=== PATIENT | male | born 1950 | race Caucasian/White ===

== ENCOUNTER 2016-11-06 09:32 | Emergency (ER) | payer OTHER ==
--- NOTE | 2016-11-06 10:20 | ED CLINICAL REPORT ---
Clinical Report - Physicians/Mid Levels [facility] [address] [place] [address] 11/06/2016 9:36 Patient: RADHA ROTHMAN Time Seen: 09:43. Arrived- By private vehicle. Historian- patient. HISTORY OF PRESENT ILLNESS Chief Complaint: CHEST PAIN. This started last night. It was abrupt in onset and has been intermittent. Onset during rest and moderate exertion. At its maximum, severity described as moderate. When seen in the E.D., it was gone. It is described as pressure and aching and it is described as located in the central chest area and radiating to the right arm. No nausea. He has had difficulty breathing and has experienced diaphoresis. (the patient had a small amount of pain last night that resolved spontaneously. He woke this morning and had the pain again.). REVIEW OF SYSTEMS No chills, fever, sweats, calf pain or pedal edema. No palpitations, abdominal pain, constipation, diarrhea or nausea. No vomiting or urinary problems. All systems otherwise negative, except as recorded above. PAST HISTORY Problems: Hyperlipidemia. Arthritis. Hypertension. Additional Surgeries: no known surgeries. Medications: Mvi. Aspirin Oral (Tablet 81 mg) 1 tablet, QD. Pravastatin Sodium Oral (Tablet 40 mg) 1 tablet, daily. Atenolol Oral (Tablet 25 mg) 1 tablet, daily. Lisinopril-Hydrochlorothiazide Oral (Tablet 20-12.5 mg) 1 tablet, QD. Isosorbide Mononitrate Oral 30mg, QD. Nitroglycerin Translingual. SOCIAL HISTORY Smoker- current status unknown. Occasional alcohol use. FAMILY HISTORY Premature onset heart disease in first-degree relative (father), grandparent. ADDITIONAL NOTES The nursing notes have been reviewed. PHYSICAL EXAM Vital Signs: 11/06/2016 09:38 BP: 134/79. HR: 66. RR: 16. O2 saturation: 97%. Temp: 97.7 F. Pain level now: 4/10. Have been reviewed. Appearance: Alert. Eyes: Pupils equal, round and reactive to light. ENT: Pharynx normal. Neck: Normal inspection. Neck supple. CVS: Normal heart rate and rhythm. Heart sounds normal. Respiratory: No respiratory distress. Breath sounds normal. Abdomen: Soft and nontender. Bowel sounds normal. No organomegaly. No mass. Back: Normal external inspection. Skin: Skin warm and dry. Normal skin color. Normal skin turgor. Extremities: Extremities exhibit normal ROM. No calf tenderness. No lower extremity edema. LABS, X-RAYS, AND EKG EKG: ST elevation in lead II, III and aVF- consistent with inferior infarction. EKG #2: Q waves in lead II, III and aVF. ST elevation in lead II, III and aVF- consistent with infarction. right-sided leads. Chest X-ray: Mild vascular congestion present. The X-rays were independently viewed by me. Laboratory Tests: CBC w Diff: (GINO: 11/06/2016 09:55) ( [employer] 11/06/2016 10:12) IP Test Result Flag Units (Reference) RED BLOOD COUNT 5.45 M/uL (4.50-5.90) HEMOGLOBIN 16.5 gm/dL (13.5-17.5) HEMATOCRIT 49.1 % (41.0-53.0) MEAN CELL VOLUME 90 fL (80-100) MEAN CORPUSCULAR HGB 30 pg (26-34) MEAN CORPUSCULAR HGB CONC 34 g/dL (31-37) RED CELL DISTRIBUTION WIDTH 12.5 % (11.6-14.8) NEUTROPHIL % 73.8 % (50-75) LYMPH % 18.0 L % (25-40) MONO % 5.0 % (3-14) EOSINOPHIL % 1.6 % (0-4) BASOPHIL % 1.6 % (0-2) PT with INR: (GINO: 11/06/2016 09:55) ( [facility] 11/06/2016 10:24) Final results Test Result Flag Units (Reference) INR 1.1 (0.8-1.2) Low Intensity Therapy: INR 1.5-2.0 PT range 18.5-23.1Mod.Intensity Therapy: INR 2.0-3.0 PT range 23.1-31.5High Intensity Therapy: INR 2.5-3.5 PT range 27.4-35.5High Intensity Therapy 2: INR 3.0-4.0 PT range 31.5-39.3 APTT 26 SECONDS (24-34) D-DIMER QUANTITATIVE < 0.27 L ug/mLFEU (0.27-0.52) The primary value of this quantitative assay relates toits negative predictive value (i.e. exclusion) of pulmonaryembolism/deep vein thrombosis/DIC.Elevated levels of d-dimer may also occur with:, age, cancer, inflammation, liver disease,post-op, infection, hematoma, coronary disease, peripheralarteriopathy, bleeding disorders and thrombolytic treatment.Results should be correlated with other clinical andradiological data.Testing Methodology: Latex Immunoassay BNP: (GINO: 11/06/2016 09:55) ( MsgRcvd 11/06/2016 10:25) Final results Test Result Flag Units (Reference) B-TYPE NATRIURETIC PEPTIDE 53.0 pg/ml (5-100) CMP: (GINO: 11/06/2016 09:55) ( MsgRcvd 11/06/2016 10:24) Final results Test Result Flag Units (Reference) GLUCOSE 172 H mg/dL (70-110) BUN 19 H mg/dL (7-18) CREATININE 1.2 mg/dL (0.6-1.3) Estimated GFR >60 mL/min Estimated GFR- >60 mL/min Note: Persistent reduction over 3 months in eGFR<60 mL/min/1.73 m2 defines CKD. Patients with eGFR values>=60 mL/min/1.73 m2 may also have CKD if evidence ofpersistent proteinuria. Additional information may be foundat www.kidney.org. SODIUM 139 mmol/L (136-145) POTASSIUM 4.1 mmol/L (3.5-5.1) CHLORIDE 103 mmol/L (98-107) CARBON DIOXIDE 25 mmol/L (21-32) CALCIUM 9.0 mg/dL (8.5-10.1) TOTAL PROTEIN 7.1 g/dL (6.4-8.2) ALBUMIN 3.7 g/dL (3.3-5.0) BILIRUBIN, TOTAL 1.0 mg/dL (0.0-1.0) ALKALINE PHOSPHATASE 63 U/L (46-116) AST (SGOT) 22 U/L (15-37) ALT (SGPT) 26 U/L (12-78) LIPASE 86 U/L (73-393) AMYLASE 45 U/L (25-115) CPK 123 U/L (24-260) TROPONIN I 0.13 ng/mL (0.00-1.5) TROPONIN REFERENCE RANGE:<0.1 NEGATIVE0.1-1.5 INDETERMINANT>1.5 POSITIVE . PROGRESS AND PROCEDURES Course of Care: Patient is stable. Discussed case with health care provider (Nicolas GARIBAY doctor at [facility]). Reviewed test results and need for additional work-up. Agreed upon treatment plan. Patient/family counseled. Old medical records ordered. Old records unavailable. Disposition: Benefits, risks and alternatives to transfer explained to patient and family. Transferred to [facility]. CLINICAL IMPRESSION Acute inferior myocardial infarction with ST elevation (STEMI). Aspirin administered in ED. (Electronically signed by Gian Sprague MD 11/06/2016 10:30)
--- NOTE | 2016-11-06 10:20 | ED ORDER SUMMARY ---
..... Patient: RADHA ROTHMAN OrderSheet [facility] VisitID: [id number] [address] [place] [address] 66y, M Registration Date/Time: 11/06/2016 ORDER SHEET Weight: 80 kg Allergies: No Known Drug Allergy GENERAL ORDERS: Chest 1V Urgent (11/06/2016 Tyrone SPAULDING) (Ack 9:47 CONSTANCEoerner) (10:01 GMarshall R.N.) Agility Instructor (Continuous) (11/06/2016 Tyrone SPAULDING) (9:54 KHoerner) CBC w Diff Urgent (11/06/2016 Tyrone SPAULDING) (Ack 9:47 KHoerner) (10:00 JSimbeck R.N.) CMP Urgent (11/06/2016 Tyrone SPAULDING) (Ack 9:47 CONSTANCEoehughner) (10:00 JSimbeck R.N.) UA-Culture if indicated Urgent (11/06/2016 Tyrone SPAULDING) (Ack 9:47 CONSTANCEoerner) (Cancelled: Patient Left11:30 JSimbeck R.N.) PT with INR Urgent (11/06/2016 Tyrone SPAULDING) (Ack 9:47 CONSTANCEoerner) (10:00 JSimbeck R.N.) PTT Urgent (11/06/2016 Tyrone SPAULDING) (Ack 9:47 CONSTANCEoerner) (10:00 JSimbeck R.N.) D-Dimer Urgent (11/06/2016 Tyrone SPAULDING) (Ack 9:47 CONSTANCEoermary) (10:00 JSimbeck R.N.) Amylase Urgent (11/06/2016 Tyrone SPAULDING) (Ack 9:47 KHoerner) (10:00 JSimbeck R.N.) Lipase Urgent (11/06/2016 Tyrone SPAULDING) (Ack 9:47 CONSTANCEoehughner) (10:00 JSimbeck R.N.) CPK Urgent (11/06/2016 Tyrone SPAULDING) (Ack 9:47 KHoerner) (10:00 JSimbeck R.N.) Troponin-I Urgent (:11/06/2016 Tyrone SPAULDING) (Ack 9:47 KHoerner) (10:00 JSimbeck R.N.) BNP Urgent (:11/06/2016 Tyrone SPAULDING) (Ack 9:47 KHoerner) (10:00 JSimbeck R.N.) Oxygen (2 L/min) (NC) (:11/06/2016 Tyrone SPAULDING) (9:54 KHoerner) Pulse oximeter (:11/06/2016 Tyrone SPAULDING) (9:54 KHoerner) EKG - ER Stat (:11/06/2016 Tyrone SPAULDING) (9:54 KHoerner) MEDICATION ORDERS: Aspirin PO 325 mg (NOW) (:11/06/2016 Tyrone SPAULDING) (9:59 JSimbeck R.N.) Plavix PO 600 mg (HIGH ALERT MEDICATION, NOW) (10:11/06/2016 Tyrone SPAULDING) (10:21 JSimbeck R.N.) IV FLUIDS: IV Saline Lock (11/06/2016 Tyrone SPAULDING) (10:00 JSimbeck R.N.) Heparin IV : initial bolus 5,000 units, then 18 units/kg/hr for 4h (NOW); Urgent (10:02 11/06/2016 Tyrone SPAULDING) (10:18 JSimbeck R.N.) IV NS : initial bolus none -, then 100 mL/hr for X4 (NOW) (11:26 11/06/2016 JSimbeck R.N. verbal order read back to Tyrone SPAULDING) (11:27 Edmundoeck R.N.) ORDER SHEET NOTES: [Electronically signed by Gian Sprague MD (10:29 11/06/2016)] [Electronically signed by Johnnie Pacheco R.N. (19:17 11/06/2016)] [Electronically locked/signed by Johnnie Pacheco R.N. (19:11/06/2016)]
--- NOTE | 2016-11-06 10:20 | ED CLINICAL REPORT ---
Clinical Report - Physicians/Mid Levels [facility] [address] [place] [address] 11/06/2016 9:36 Patient: RADHA ROTHMAN Time Seen: 09:43. Arrived- By private vehicle. Historian- patient. HISTORY OF PRESENT ILLNESS Chief Complaint: CHEST PAIN. This started last night. It was abrupt in onset and has been intermittent. Onset during rest and moderate exertion. At its maximum, severity described as moderate. When seen in the E.D., it was gone. It is described as pressure and aching and it is described as located in the central chest area and radiating to the right arm. No nausea. He has had difficulty breathing and has experienced diaphoresis. (the patient had a small amount of pain last night that resolved spontaneously. He woke this morning and had the pain again.). REVIEW OF SYSTEMS No chills, fever, sweats, calf pain or pedal edema. No palpitations, abdominal pain, constipation, diarrhea or nausea. No vomiting or urinary problems. All systems otherwise negative, except as recorded above. PAST HISTORY Problems: Hyperlipidemia. Arthritis. Hypertension. Additional Surgeries: no known surgeries. Medications: Mvi. Aspirin Oral (Tablet 81 mg) 1 tablet, QD. Pravastatin Sodium Oral (Tablet 40 mg) 1 tablet, daily. Atenolol Oral (Tablet 25 mg) 1 tablet, daily. Lisinopril-Hydrochlorothiazide Oral (Tablet 20-12.5 mg) 1 tablet, QD. Isosorbide Mononitrate Oral 30mg, QD. Nitroglycerin Translingual. SOCIAL HISTORY Smoker- current status unknown. Occasional alcohol use. FAMILY HISTORY Premature onset heart disease in first-degree relative (father), grandparent. ADDITIONAL NOTES The nursing notes have been reviewed. PHYSICAL EXAM Vital Signs: 11/06/2016 09:38 BP: 134/79. HR: 66. RR: 16. O2 saturation: 97%. Temp: 97.7 F. Pain level now: 4/10. Have been reviewed. Appearance: Alert. Eyes: Pupils equal, round and reactive to light. ENT: Pharynx normal. Neck: Normal inspection. Neck supple. CVS: Normal heart rate and rhythm. Heart sounds normal. Respiratory: No respiratory distress. Breath sounds normal. Abdomen: Soft and nontender. Bowel sounds normal. No organomegaly. No mass. Back: Normal external inspection. Skin: Skin warm and dry. Normal skin color. Normal skin turgor. Extremities: Extremities exhibit normal ROM. No calf tenderness. No lower extremity edema. LABS, X-RAYS, AND EKG EKG: ST elevation in lead II, III and aVF- consistent with inferior infarction. EKG #2: Q waves in lead II, III and aVF. ST elevation in lead II, III and aVF- consistent with infarction. right-sided leads. Chest X-ray: Mild vascular congestion present. The X-rays were independently viewed by me. Laboratory Tests: CBC w Diff: (GINO: 11/06/2016 09:55) ( [facility] 11/06/2016 10:12) IP Test Result Flag Units (Reference) RED BLOOD COUNT 5.45 M/uL (4.50-5.90) HEMOGLOBIN 16.5 gm/dL (13.5-17.5) HEMATOCRIT 49.1 % (41.0-53.0) MEAN CELL VOLUME 90 fL (80-100) MEAN CORPUSCULAR HGB 30 pg (26-34) MEAN CORPUSCULAR HGB CONC 34 g/dL (31-37) RED CELL DISTRIBUTION WIDTH 12.5 % (11.6-14.8) NEUTROPHIL % 73.8 % (50-75) LYMPH % 18.0 L % (25-40) MONO % 5.0 % (3-14) EOSINOPHIL % 1.6 % (0-4) BASOPHIL % 1.6 % (0-2) PT with INR: (GINO: 11/06/2016 09:55) ( [facility] 11/06/2016 10:24) Final results Test Result Flag Units (Reference) INR 1.1 (0.8-1.2) Low Intensity Therapy: INR 1.5-2.0 PT range 18.5-23.1Mod.Intensity Therapy: INR 2.0-3.0 PT range 23.1-31.5High Intensity Therapy: INR 2.5-3.5 PT range 27.4-35.5High Intensity Therapy 2: INR 3.0-4.0 PT range 31.5-39.3 APTT 26 SECONDS (24-34) D-DIMER QUANTITATIVE < 0.27 L ug/mLFEU (0.27-0.52) The primary value of this quantitative assay relates toits negative predictive value (i.e. exclusion) of pulmonaryembolism/deep vein thrombosis/DIC.Elevated levels of d-dimer may also occur with:, age, cancer, inflammation, liver disease,post-op, infection, hematoma, coronary disease, peripheralarteriopathy, bleeding disorders and thrombolytic treatment.Results should be correlated with other clinical andradiological data.Testing Methodology: Latex Immunoassay BNP: (GION: 11/06/2016 09:55) ( MsgRcvd 11/06/2016 10:25) Final results Test Result Flag Units (Reference) B-TYPE NATRIURETIC PEPTIDE 53.0 pg/ml (5-100) CMP: (GINO: 11/06/2016 09:55) ( MsgRcvd 11/06/2016 10:24) Final results Test Result Flag Units (Reference) GLUCOSE 172 H mg/dL (70-110) BUN 19 H mg/dL (7-18) CREATININE 1.2 mg/dL (0.6-1.3) Estimated GFR >60 mL/min Estimated GFR- >60 mL/min Note: Persistent reduction over 3 months in eGFR<60 mL/min/1.73 m2 defines CKD. Patients with eGFR values>=60 mL/min/1.73 m2 may also have CKD if evidence ofpersistent proteinuria. Additional information may be foundat www.kidney.org. SODIUM 139 mmol/L (136-145) POTASSIUM 4.1 mmol/L (3.5-5.1) CHLORIDE 103 mmol/L (98-107) CARBON DIOXIDE 25 mmol/L (21-32) CALCIUM 9.0 mg/dL (8.5-10.1) TOTAL PROTEIN 7.1 g/dL (6.4-8.2) ALBUMIN 3.7 g/dL (3.3-5.0) BILIRUBIN, TOTAL 1.0 mg/dL (0.0-1.0) ALKALINE PHOSPHATASE 63 U/L (46-116) AST (SGOT) 22 U/L (15-37) ALT (SGPT) 26 U/L (12-78) LIPASE 86 U/L (73-393) AMYLASE 45 U/L (25-115) CPK 123 U/L (24-260) TROPONIN I 0.13 ng/mL (0.00-1.5) TROPONIN REFERENCE RANGE:<0.1 NEGATIVE0.1-1.5 INDETERMINANT>1.5 POSITIVE . PROGRESS AND PROCEDURES Course of Care: Patient is stable. Discussed case with health care provider (Nicolas GARIBAY doctor at [facility]). Reviewed test results and need for additional work-up. Agreed upon treatment plan. Patient/family counseled. Old medical records ordered. Old records unavailable. Disposition: Benefits, risks and alternatives to transfer explained to patient and family. Transferred to [facility]. CLINICAL IMPRESSION Acute inferior myocardial infarction with ST elevation (STEMI). Aspirin administered in ED. (Electronically signed by Gina Sprague MD 11/06/2016 10:30)
--- NOTE | 2016-11-06 10:20 | ED NURSING NOTES ---
Clinical Report - Nurses [facility] [address] [place] [address] 11/06/2016 9:36 Patient: RADHA ROTHMAN TRIAGE Triage time 09:38. Acuity: LEVEL 3. Chief Complaint: CHEST PAIN and (Dull pressure 4/10, substernal and radiates into the left arm. Pt woke with this CP, relieved for a few minutes after taking NTG x3 SL. Pt was diaphoretic. CP is not reproducible.). SEPSIS SCREEN: Sepsis Screen. Negative (no infection suspected/documented). --09:50 Johnnie Pacheco R.N. 09:38 11/06/16. BP: 134/79 (regular adult cuff) taken on the left arm, while lying. HR: 66. RR: 16. O2 saturation: 97% on room air. Temp: 97.7 F. Pain level now: 4/10. --09:50 Johnnie Pacheco R.N. Acuity: LEVEL 2. late entry -09:50. --10:55 Johnnie Pacheco R.N. Weight: 80 kg. Height/Length: 71 inches. BMI: 24.6. --09:38 Johnnie Pacheco R.N. Medications Nitroglycerin Translingual. --09:43 Johnnie Pacheco R.N. Isosorbide Mononitrate Oral 30mg, QD. --09:44 Johnnie Pacheco R.N. Lisinopril-Hydrochlorothiazide Oral (Tablet 20-12.5 mg) 1 tablet, QD. --09:46 Johnnie Pacheco R.N. Atenolol Oral (Tablet 25 mg) 1 tablet, daily. --09:46 Johnnie Pacheco R.N. Pravastatin Sodium Oral (Tablet 40 mg) 1 tablet, daily. --09:46 Johnnie Pacheco R.N. Aspirin Oral (Tablet 81 mg) 1 tablet, QD. --09:47 Johnnie Pacheco R.N. Mvi. --09:47 Johnnie Pacheco R.N. Allergies No Known Drug Allergy. --12:31 Johnnie Pacheco R.N. History Arrived by private vehicle. Historian: patient. Accompanied by family. This started today. Treatment DAY CARE WORKER: ( NTG x3). SOCIAL HX: Former smoker, end date 1976 (cigarette). Occasional alcohol use. ABUSE ASSESSMENT: No report of abuse. --09:50 Johnnie Pacheco R.N. PROBLEMS: Arthritis. Hypertension. --09:48 Johnnie Pacheco R.N. ADDITIONAL SURGERIES: no known surgeries. Assessment The patient states feels the same. GENERAL / NEURO / PSYCH: Alert. Oriented X 4. Appears in no acute distress. Patient appears calm and cooperative. RESPIRATORY: Respirations not labored. Chest tender. Upper and mid- sternal tenderness (radiates to the left arm). Breath sounds within normal limits. CVS: Normal sinus rhythm noted. Cardiac rhythm: normal sinus rhythm; (STEMI). Pulses: (normal). Capillary refill less than 2 seconds. GI / : Abdomen soft and nontender. SKIN: Mucous membranes are pink. Skin is warm and dry. --10:55 Johnnie Pacheco R.N. Interventions ID band on patient. To treatment room. --09:50 Johnnie Pacheco R.N. NURSING PROGRESS NOTES EKG time: (50). EKG was ordered, performed by a tech and shown to the ED physician. --09:59 Leandro Basilio ER Tech1 09:59 11/06/2016 Aspirin PO Tablets 243 mg given. Allergies verified and confirmed 5 rights. --09:59 Johnnie Pacheco R.N. EKG time: (57). EKG was ordered, performed by a tech and shown to the ED physician. ( 2 EKGs done, one on left side, one on right side.). --10:00 Leandro Basilio ER Tech1 09:55 11/06/2016 Site #1 started via IV in the right antecubital space with an 18g angiocath, with aseptic technique and good blood return; one attempt. Blood drawn: rainbow set. Labeled in the presence of the patient and sent to the lab. Saline lock flushed with 10 mL saline. --10:00 Johnnie Pacheco R.N. 10:06 11/06/2016 Heparin IVP 5000 unit given over 1 minute(s) via site #1. Allergies verified and confirmed 5 rights. IV patency established. IV site checked: no pain, redness, or swelling. IV flushed thoroughly pre- and post-medication administration. IVP given by RN (Drip started @1458 units/hr via pump). --10:18 Johnnie Pacheco R.N. 10:08 11/06/2016 Plavix (Clopidogrel Bisulfate) PO Tablets 600 mg given. Allergies verified and confirmed 5 rights. --10:21 Johnnie Pacheco R.N. 10:12 11/06/2016 Started bag #1 1000 mL IV Fluids IV NS (Saline); at 100 mL/hr over 4 hour(s) via site #1. Allergies verified and confirmed 5 rights. IV patency established. IV site checked: no pain, redness, or swelling. IV flushed thoroughly pre- and post-medication administration. --11:27 Johnnie aPcheco R.N. 10:15 11/06/2016 IV Fluids IV NS Continued: upon transfer at the rate of 100 mL/hr. 980 mL remaining bag #1. IV patency established. IV site checked: no pain, redness, or swelling. IV flushed thoroughly. --12:32 Johnnie Pacheco R.N. DISPOSITION / DISCHARGE 10:11/06/2016 Site #2 started via IV in the left antecubital space with an 20g angiocath, with aseptic technique and good blood return; one attempt. Saline lock flushed with 10 mL saline (by ROLAND Cotton). --11:24 Johnnie Pacheco R.N. 10:11/06/2016 Site #[address] upon transfer; patent, no pain and no signs of infection or infiltration. Flushed with 10 mL saline; flushes easily. --11:25 Johnnie Pacheco R.N. 10:15 11/06/2016 Site #[address] upon transfer; patent, no pain and no signs of infection or infiltration. Flushed with 10 mL saline; flushes easily. --11:25 Johnnie Pacheco R.N. late entry -1015. Departure time: 1015. Cardiac rhythm: normal sinus rhythm; (STEMI). Condition at departure: unchanged. Transferred to [facility]. Summary of care provided to EMS via paper (Grain Drier Operator). Transported via ambulance by EMS with monitor, defibrillator, IV, O2, emergency medications and ambu bag ([facility]). --11:30 Johnnie Pacheco R.N. 10:00 11/06/16. BP: 136/80. HR: 66. RR: 16. O2 saturation: 98% on nasal cannula at 2 liters/minute. Temp: 97.7 F. Pain level now: 09/19. --11:30 Johnnie Pacehco R.N. late entry -10:25. Report was given to a nurse via a phone call. Report included patient's care, treatment, medications, reviewed medication reconcilliation, and condition (including any recent changes or anticipated changes). All questions were answered. Report was acknowledged. ([facility] Grain Drier Operator). ( Heparin drip was stopped and clamped for transport because the medics cannot transport a Heparin drip.). --12:35 Johnnie Pacheco R.N. Locked/Released at 11/06/2016 19:17 by Johnnie Pacheco R.N.
--- NOTE | 2016-11-06 10:20 | ED NURSING NOTES ---
Clinical Report - Nurses [facility] [address] [place] [address] 11/06/2016 9:36 Patient: RADHA ROTHMAN TRIAGE Triage time 09:38. Acuity: LEVEL 3. Chief Complaint: CHEST PAIN and (Dull pressure 4/10, substernal and radiates into the left arm. Pt woke with this CP, relieved for a few minutes after taking NTG x3 SL. Pt was diaphoretic. CP is not reproducible.). SEPSIS SCREEN: Sepsis Screen. Negative (no infection suspected/documented). --09:50 Johnnie Pacheco R.N. 09:38 11/06/16. BP: 134/79 (regular adult cuff) taken on the left arm, while lying. HR: 66. RR: 16. O2 saturation: 97% on room air. Temp: 97.7 F. Pain level now: 4/10. --09:50 Johnnie Pacheco R.N. Acuity: LEVEL 2. late entry -09:50. --10:55 Johnnie Pacheco R.N. Weight: 80 kg. Height/Length: 71 inches. BMI: 24.6. --09:38 Johnnie Pacheco R.N. Medications Nitroglycerin Translingual. --09:43 Johnnie Pacheco R.N. Isosorbide Mononitrate Oral 30mg, QD. --09:44 Johnnie Pacheco R.N. Lisinopril-Hydrochlorothiazide Oral (Tablet 20-12.5 mg) 1 tablet, QD. --09:46 Johnnie Pacheco R.N. Atenolol Oral (Tablet 25 mg) 1 tablet, daily. --09:46 Johnnie Pacheco R.N. Pravastatin Sodium Oral (Tablet 40 mg) 1 tablet, daily. --09:46 Johnnie Pacheco R.N. Aspirin Oral (Tablet 81 mg) 1 tablet, QD. --09:47 Johnnie Pacheco R.N. Mvi. --09:47 Johnnie Pacheco R.N. Allergies No Known Drug Allergy. --12:31 Johnnie Pacheco R.N. History Arrived by private vehicle. Historian: patient. Accompanied by family. This started today. Treatment PATIENT CARE COORDINATOR: ( NTG x3). SOCIAL HX: Former smoker, end date 1976 (cigarette). Occasional alcohol use. ABUSE ASSESSMENT: No report of abuse. --09:50 Johnnie Pacheco R.N. PROBLEMS: Arthritis. Hypertension. --09:48 Johnnie Pacheco R.N. ADDITIONAL SURGERIES: no known surgeries. Assessment The patient states feels the same. GENERAL / NEURO / PSYCH: Alert. Oriented X 4. Appears in no acute distress. Patient appears calm and cooperative. RESPIRATORY: Respirations not labored. Chest tender. Upper and mid- sternal tenderness (radiates to the left arm). Breath sounds within normal limits. CVS: Normal sinus rhythm noted. Cardiac rhythm: normal sinus rhythm; (STEMI). Pulses: (normal). Capillary refill less than 2 seconds. GI / : Abdomen soft and nontender. SKIN: Mucous membranes are pink. Skin is warm and dry. --10:55 Johnnie Pacheco R.N. Interventions ID band on patient. To treatment room. --09:50 Johnnie Pacheco R.N. NURSING PROGRESS NOTES EKG time: (50). EKG was ordered, performed by a tech and shown to the ED physician. --09:59 Leandro Basilio ER Tech1 09:59 11/06/2016 Aspirin PO Tablets 243 mg given. Allergies verified and confirmed 5 rights. --09:59 Johnnie Pacheco R.N. EKG time: (57). EKG was ordered, performed by a tech and shown to the ED physician. ( 2 EKGs done, one on left side, one on right side.). --10:00 Leandro Basilio ER Tech1 09:55 11/06/2016 Site #1 started via IV in the right antecubital space with an 18g angiocath, with aseptic technique and good blood return; one attempt. Blood drawn: rainbow set. Labeled in the presence of the patient and sent to the lab. Saline lock flushed with 10 mL saline. --10:00 Johnnie Pacheco R.N. 10:06 11/06/2016 Heparin IVP 5000 unit given over 1 minute(s) via site #1. Allergies verified and confirmed 5 rights. IV patency established. IV site checked: no pain, redness, or swelling. IV flushed thoroughly pre- and post-medication administration. IVP given by RN (Drip started @1458 units/hr via pump). --10:18 Johnnie Pacheco R.N. 10:08 11/06/2016 Plavix (Clopidogrel Bisulfate) PO Tablets 600 mg given. Allergies verified and confirmed 5 rights. --10:21 Johnnie Pacheco R.N. 10:12 11/06/2016 Started bag #1 1000 mL IV Fluids IV NS (Saline); at 100 mL/hr over 4 hour(s) via site #1. Allergies verified and confirmed 5 rights. IV patency established. IV site checked: no pain, redness, or swelling. IV flushed thoroughly pre- and post-medication administration. --11:27 Johnnie Pacheco R.N. 10:15 11/06/2016 IV Fluids IV NS Continued: upon transfer at the rate of 100 mL/hr. 980 mL remaining bag #1. IV patency established. IV site checked: no pain, redness, or swelling. IV flushed thoroughly. --12:32 Johnnie Pacheco R.N. DISPOSITION / DISCHARGE 10:11/06/2016 Site #2 started via IV in the left antecubital space with an 20g angiocath, with aseptic technique and good blood return; one attempt. Saline lock flushed with 10 mL saline (by ROLAND Cotton). --11:24 Johnnie Pacheco R.N. 10:11/06/2016 Site #[address] upon transfer; patent, no pain and no signs of infection or infiltration. Flushed with 10 mL saline; flushes easily. --11:25 Johnnie Pacheco R.N. 10:15 11/06/2016 Site #[address] upon transfer; patent, no pain and no signs of infection or infiltration. Flushed with 10 mL saline; flushes easily. --11:25 Johnnie Pacheco R.N. late entry -1015. Departure time: 1015. Cardiac rhythm: normal sinus rhythm; (STEMI). Condition at departure: unchanged. Transferred to [facility]. Summary of care provided to EMS via paper ([employer] Machine Operator). Transported via ambulance by EMS with monitor, defibrillator, IV, O2, emergency medications and ambu bag ([facility]). --11:30 Johnnie Pacheco R.N. 10:00 11/06/16. BP: 136/80. HR: 66. RR: 16. O2 saturation: 98% on nasal cannula at 2 liters/minute. Temp: 97.7 F. Pain level now: 09/19. --11:30 Johnnie Pacehco R.N. late entry -10:25. Report was given to a nurse via a phone call. Report included patient's care, treatment, medications, reviewed medication reconcilliation, and condition (including any recent changes or anticipated changes). All questions were answered. Report was acknowledged. ([facility] [employer] Machine Operator). ( Heparin drip was stopped and clamped for transport because the medics cannot transport a Heparin drip.). --12:35 Johnnie Pacheco R.N. Locked/Released at 11/06/2016 19:17 by Johnnie Pacheco R.N.
--- NOTE | 2016-11-06 10:20 | ED ORDER SUMMARY ---
..... Patient: RADHA ROTHMAN OrderSheet [facility] VisitID: [id number] [address] [place] [address] 66y, M Registration Date/Time: 11/06/2016 ORDER SHEET Weight: 80 kg Allergies: No Known Drug Allergy GENERAL ORDERS: Chest 1V Urgent (11/06/2016 Tyrone SPAULDING) (Ack 9:47 CONSTANCEoerner) (10:01 GMarshall R.N.) Metal Reclamation Kettle Tender (Continuous) (11/06/2016 Tyrone SPAULDING) (9:54 KHoerner) CBC w Diff Urgent (11/06/2016 Tyrone SPAULDING) (Ack 9:47 KHoerner) (10:00 JSimbeck R.N.) CMP Urgent (11/06/2016 Tyrone SPAULDING) (Ack 9:47 CONSTANCEoehughner) (10:00 JSimbeck R.N.) UA-Culture if indicated Urgent (11/06/2016 Tyrone SPAULDING) (Ack 9:47 CONSTANCEoerner) (Cancelled: Patient Left11:30 JSimbeck R.N.) PT with INR Urgent (11/06/2016 Tyrone SPAULDING) (Ack 9:47 CONSTANCEoerner) (10:00 JSimbeck R.N.) PTT Urgent (11/06/2016 Tyrone SPAULDING) (Ack 9:47 CONSTANCEoerner) (10:00 JSimbeck R.N.) D-Dimer Urgent (11/06/2016 Tyrone SPAULDIGN) (Ack 9:47 CONSTANCEoermary) (10:00 JSimbeck R.N.) Amylase Urgent (11/06/2016 Tyrone SPAULDING) (Ack 9:47 KHoerner) (10:00 JSimbeck R.N.) Lipase Urgent (11/06/2016 Tyrone SPAULDING) (Ack 9:47 CONSTANCEoehughner) (10:00 JSimbeck R.N.) CPK Urgent (11/06/2016 Tyrone SPAULDING) (Ack 9:47 KHoerner) (10:00 JSimbeck R.N.) Troponin-I Urgent (:11/06/2016 Tyrone SPAULDING) (Ack 9:47 KHoerner) (10:00 JSimbeck R.N.) BNP Urgent (:11/06/2016 Tyrone SPAULDING) (Ack 9:47 KHoerner) (10:00 JSimbeck R.N.) Oxygen (2 L/min) (NC) (:11/06/2016 Tyrone SPAULDING) (9:54 KHoerner) Pulse oximeter (:11/06/2016 Tyrone SPAULDING) (9:54 KHoerner) EKG - ER Stat (:11/06/2016 Tyrone SPAULDING) (9:54 KHoerner) MEDICATION ORDERS: Aspirin PO 325 mg (NOW) (:11/06/2016 Tyrone SPAULDING) (9:59 JSimbeck R.N.) Plavix PO 600 mg (HIGH ALERT MEDICATION, NOW) (10:11/06/2016 Tyrone SPAULDING) (10:21 JSimbeck R.N.) IV FLUIDS: IV Saline Lock (11/06/2016 Tyrone SPAULDING) (10:00 JSimbeck R.N.) Heparin IV : initial bolus 5,000 units, then 18 units/kg/hr for 4h (NOW); Urgent (10:02 11/06/2016 Tyrone SPAULDING) (10:18 JSimbeck R.N.) IV NS : initial bolus none -, then 100 mL/hr for X4 (NOW) (11:26 11/06/2016 JSimbeck R.N. verbal order read back to Tyrone SPAULDING) (11:27 Edmundoeck R.N.) ORDER SHEET NOTES: [Electronically signed by Gian Sprague MD (10:29 11/06/2016)] [Electronically signed by Johnnie Pacheco R.N. (19:17 11/06/2016)] [Electronically locked/signed by Johnnie Pacheco R.N. (19:11/06/2016)]
--- NOTE | 2016-11-06 11:13 | DIAGNOSTIC IMAGING REPORT ---
PROCEDURE: XR CHEST 1 VIEW INDICATION: CHEST PAIN TECHNIQUE: Single view chest. 1005 hours COMPARISON: None FINDINGS: Heart size within normal limits. Normal mediastinal contour. Slight cephalization of central vessels. Lungs are fully inflated. No consolidation, effusion, or pneumothorax. Intact osseous structures. IMPRESSION: 1. Slight cephalization of central vessels. This may reflect a mild heart failure. 2. No significant pulmonary edema.
--- NOTE | 2016-11-06 19:18 | ED MAR SUMMARY ---
..... Medication Administration Record [facility] [address] [place] [address] Patient: RADHA ROTHMAN Visit ID: [id number] 66y, M Weight: 80.0 kg Height/Length: 71 in BMI: 24.6 ALLERGIES: No Known Drug Allergy Given 09:59 11/06/2016 Johnnie Pacheco R.N. Medication Administered: ASPIRIN [PO], Dose: 243 mg Tablets PO. Medication Ordered: Aspirin PO 325 mg (NOW). Given 10:06 11/06/2016 Johnnie Pacheco R.N. Medication Administered: HEPARIN [IVP], Dose: 5000 unit IVP over 1 minute(s), Site: #1 right AC. Medication Ordered: Heparin IV : initial bolus 5,000 units, then 18 units/kg/hr for 4h (NOW); Urgent. Given 10:08 11/06/2016 Johnnie Pacheco R.N. Medication Administered: PLAVIX [PO] (CLOPIDOGREL BISULFATE), Dose: 600 mg Tablets PO. Medication Ordered: Plavix PO 600 mg (HIGH ALERT MEDICATION, NOW). Start 10:12 11/06/2016 Johnnie Pacheco R.N., Continued Upon Transfer 10:15 11/06/2016 Johnnie Pacheco R.N. Medication Administered: IV NS (SALINE), Dose: IV Fluids over 4 hour(s), Rate: 100 mL/hr, Dispensed: 1000 mL bag, Site: #1 right AC. Medication Ordered: IV NS : initial bolus none -, then 100 mL/hr for X4 (NOW).
--- NOTE | 2016-11-06 19:18 | ED DISCHARGE INSTRUCTIONS ---
Patient: RADHA ROTHMAN General Instructions [facility] VisitID: [id number] [address] [place] [address] 66y, M Registration Date/Time: 11/06/2016 Acute inferior myocardial infarction with ST elevation (STEMI). Aspirin administered in ED. (Electronically signed by Gian Sprague MD 11/06/2016 10:30)
--- NOTE | 2016-11-06 19:18 | ED MED RECONCILIATION SUMMARY ---
Patient: RADHA ROTHMAN Medication Reconciliation Report [facility] VisitID: [id number] [address] [place] [address] 66y, M Registration Date/Time: 11/06/2016 Weight: 80 kg Height/Length: 71 in. BMI: 24.6 ALLERGIES: No Known Drug Allergy The patient's Home Medications are listed below: THE FOLLOWING MEDICATIONS NEED TO BE RECONCILED: Aspirin Oral (81 mg) 1 tablet, QD Atenolol Oral (25 mg) 1 tablet, daily Isosorbide Mononitrate Oral 30mg, QD Lisinopril-Hydrochlorothiazide Oral (20-12.5 mg) 1 tablet, QD Mvi Nitroglycerin Translingual Pravastatin Sodium Oral (40 mg) 1 tablet, daily The source(s) of the original Home Medication information: Not obtained. The following Medications were given to the patient in the Emergency Department: Aspirin [PO] PO 243 mg, administered: 11/06/2016 9:59:00 AM Heparin [IVP] IVP 5000 unit, administered: 11/06/2016 10:06:00 AM Plavix [PO] PO 600 mg, administered: 11/06/2016 10:08:00 AM IV NS IV Fluids bolus 0, then 100 mL/hr, administered: 11/06/2016 10:12:00 AM The following Medications were prescribed to the patient: None.
--- NOTE | 2016-11-06 19:18 | ED DISCHARGE INSTRUCTIONS ---
Patient: RADHA ROTHMAN General Instructions [facility] VisitID: [id number] [address] [place] [address] 66y, M Registration Date/Time: 11/06/2016 Acute inferior myocardial infarction with ST elevation (STEMI). Aspirin administered in ED. (Electronically signed by Gian Sprague MD 11/06/2016 10:30)
--- NOTE | 2016-11-06 19:18 | ED MAR SUMMARY ---
..... Medication Administration Record [facility] [address] [address] Patient: RADHA ROTHMAN Visit ID: [id number] 66y, M Weight: 80.0 kg Height/Length: 71 in BMI: 24.6 ALLERGIES: No Known Drug Allergy Given 09:59 11/06/2016 Johnnie Pacheco R.N. Medication Administered: ASPIRIN [PO], Dose: 243 mg Tablets PO. Medication Ordered: Aspirin PO 325 mg (NOW). Given 10:06 11/06/2016 Johnnie Pacheco R.N. Medication Administered: HEPARIN [IVP], Dose: 5000 unit IVP over 1 minute(s), Site: #1 right AC. Medication Ordered: Heparin IV : initial bolus 5,000 units, then 18 units/kg/hr for 4h (NOW); Urgent. Given 10:08 11/06/2016 Johnnie Pacheco R.N. Medication Administered: PLAVIX [PO] (CLOPIDOGREL BISULFATE), Dose: 600 mg Tablets PO. Medication Ordered: Plavix PO 600 mg (HIGH ALERT MEDICATION, NOW). Start 10:12 11/06/2016 Johnnie Pacheco R.N., Continued Upon Transfer 10:15 11/06/2016 Johnnie Pacheco R.N. Medication Administered: IV NS (SALINE), Dose: IV Fluids over 4 hour(s), Rate: 100 mL/hr, Dispensed: 1000 mL bag, Site: #1 right AC. Medication Ordered: IV NS : initial bolus none -, then 100 mL/hr for X4 (NOW).
--- NOTE | 2016-11-06 19:18 | ED MED RECONCILIATION SUMMARY ---
Patient: RADHA ROTHMAN Medication Reconciliation Report [facility] VisitID: [id number] [address] [place] [address] 66y, M Registration Date/Time: 11/06/2016 Weight: 80 kg Height/Length: 71 in. BMI: 24.6 ALLERGIES: No Known Drug Allergy The patient's Home Medications are listed below: THE FOLLOWING MEDICATIONS NEED TO BE RECONCILED: Aspirin Oral (81 mg) 1 tablet, QD Atenolol Oral (25 mg) 1 tablet, daily Isosorbide Mononitrate Oral 30mg, QD Lisinopril-Hydrochlorothiazide Oral (20-12.5 mg) 1 tablet, QD Mvi Nitroglycerin Translingual Pravastatin Sodium Oral (40 mg) 1 tablet, daily The source(s) of the original Home Medication information: Not obtained. The following Medications were given to the patient in the Emergency Department: Aspirin [PO] PO 243 mg, administered: 11/06/2016 9:59:00 AM Heparin [IVP] IVP 5000 unit, administered: 11/06/2016 10:06:00 AM Plavix [PO] PO 600 mg, administered: 11/06/2016 10:08:00 AM IV NS IV Fluids bolus 0, then 100 mL/hr, administered: 11/06/2016 10:12:00 AM The following Medications were prescribed to the patient: None.
== END 2016-11-06 10:15 | disposition short-term general hospital (02) ==
LOC: ED SRH 09:32
DX: I21.19 ST elevation (STEMI) myocardial infarction involving other coronary artery of inferior wall (principal); I10 Essential (primary) hypertension; E78.5 Hyperlipidemia, unspecified; Z79.82 Long term (current) use of aspirin; Z79.899 Other long term (current) drug therapy; Z72.0 Tobacco use; Z82.49 Family history of ischemic heart disease and other diseases of the circulatory system
CPT/HCPCS: 90100; 90616; 91320; 91556; 92235; 92530; 92610; 94001; 94060; 95059